=== PATIENT | female | born 1985 | race Caucasian/White ===

== ENCOUNTER 2022-06-22 12:45 | Emergency (ER) | payer OTHER ==
[2022-06-22] MEDS ORDERED: AMOX/K CLAV 875 MG TAB ONE (13:26)
--- NOTE | 2022-06-22 13:46 | ER ---
Nurse's Notes [facility] Name: Kareen Atkinson Age: 37 yrs Sex: Female : 1985 Arrival Date: 06/22/2022 Time: 12:47 Bed 12 Private MD: Diagnosis: Bitten by dog Presentation: 06/22 12:57 Chief complaint: Bit by dog on forearm while working at [employer] 30 mins ago. Coronavirus hb screen: At this time, the client does not indicate any symptoms associated with coronavirus-19. Ebola Screen: No symptoms or risks identified at this time. Initial Sepsis Screen: Does the patient meet any 2 criteria? No. Patient's initial sepsis screen is negative. Does the patient have a suspected source of infection? No. Patient's initial sepsis screen is negative. Risk Assessment: Do you want to hurt yourself or someone else? Patient reports no desire to harm self or others. Onset of symptoms was June 22, 2022. 12:57 Method Of Arrival: Ambulatory hb 12:57 Acuity: PRADIP 4 hb Historical: - Allergies: 12:59 No Known Allergies; hb - Home Meds: 12:59 Lisinopril Oral [Active]; levothyroxine oral [Active]; hb - PMHx: 12:59 Hypertensive disorder; Hypothyroidism; hb - PSHx: 12:59 Cholecystectomy; hb - Immunization history:: Last tetanus immunization: < 5 years ago. - Social history:: Smoking status: . Assessment: 13:17 Reassessment: [employer] [employer] notified of dog bite, dispatcher states "officer is en route" . aa5 13:38 Reassessment: Pt reports signals officer spoke to her. . aa5 13:39 Reassessment: Patient is alert, oriented x 3, equal unlabored respirations, skin aa5 warm/dry/pink. Dog bite to right FA cleaned with Hibiclens and normal saline, dressed with gauze and Kerlix. One puncture wound noted to right FA, measuring approximately 0.5 cm, no active bleeding noted, 3 small scratches noted to right FA with no bleeding noted. . 13:50 Reassessment: Patient is alert, oriented x 3, equal unlabored respirations, skin aa5 warm/dry/pink. Vital Signs: 12:57 BP 142 / 96; Pulse 66; Resp 16; Temp 97.2; Pulse Ox 100% on R/A; Weight 74.84 kg; hb Height 5 ft. 5 in. (165.10 cm); Pain 9/10; 12:57 Body Mass Index 27.46 (74.84 kg, 165.10 cm) hb ED Course: 12:47 Patient arrived in ED. mr 12:49 [facility]cd[facility]C [facility] kb 12:49 Miko Singh MD is Attending Physician. kb 12:59 Triage completed. hb 13:50 No provider procedures requiring assistance completed. Patient did not have IV access aa5 during this emergency room visit. Administered Medications: 13:39 Drug: Augmentin (Amoxicillin-Clavulanate) 875 mg Route: PO; aa5 13:50 Follow up: Response: No adverse reaction aa5 Outcome: 13:46 Discharge ordered by MD. kb 13:50 Discharged to home ambulatory. aa5 13:50 Condition: stable 13:50 Discharge instructions given to patient, Instructed on discharge instructions, follow up and referral plans. medication usage, wound care, Demonstrated understanding of instructions, follow-up care, medications, wound care, Prescriptions given X 1. 13:51 Patient left the ED. iw Signatures: Anahi Mcdowell FNP-C FNP-Swapnil Lj Leny rasmussen Olga Morocho, RN JAVAD iw Christy Wong, RN RN aa5 Ainsley Oliva, JAVAD RN hb Corrections: (The following items were deleted from the chart) 13:00 12:59 PMHx: Hyperthyroidism; hb hb 13:41 13:39 Reassessment: Patient is alert, oriented x 3, equal unlabored respirations, skin aa5 warm/dry/pink. Dog bite to right FA cleaned with Hibiclens and normal saline, dressed with gauze and Kerlix. . aa5
--- NOTE | 2022-06-22 13:46 | EDPHYS ---
Physician Documentation [facility] Name: Kareen Atkinson Age: 37 yrs Sex: Female : 1985 Arrival Date: 06/22/2022 Time: 12:47 Bed 12 Private MD: ED Physician Miko Singh HPI: 06/22 15:57 This 37 yrs old Female presents to ER via Ambulatory with complaints of Dog Bite. kb 15:57 by a dog. Onset: The symptoms/episode began/occurred just prior to arrival. Animal kb information: Patient/Caregiver unable to provide information related to the animal. Secondary to the bite the patient reports an abrasion, pain. Associated signs and symptoms: Pertinent positives: pain at site, swelling at site. Severity of symptoms: At their worst the symptoms were mild, in the emergency department the symptoms are unchanged. The patient has not experienced similar symptoms in the past. The patient has not recently seen a physician. Historical: - Allergies: 12:59 No Known Allergies; hb - Home Meds: 12:59 Lisinopril Oral [Active]; levothyroxine oral [Active]; hb - PMHx: 12:59 Hypertensive disorder; Hypothyroidism; hb - PSHx: 12:59 Cholecystectomy; hb - Immunization history:: Last tetanus immunization: < 5 years ago. - Social history:: Smoking status: . ROS: 15:57 Constitutional: Negative for fever, chills, and weight loss. kb 15:57 Skin: Positive for abrasion(s), laceration(s), of the right forearm. 15:57 All other systems are negative. Exam: 15:57 Constitutional: This is a well developed, well nourished patient who is awake, alert, kb and in no acute distress. Head/Face: Normocephalic, atraumatic. ENT: Moist Mucous membranes Cardiovascular: Regular rate and rhythm with a normal S1 and S2. No gallops, murmurs, or rubs. No pulse deficits. Respiratory: Respirations even and unlabored. No increased work of breathing. Talking in full sentences MS/ Extremity: Pulses equal, no cyanosis. Neurovascular intact. Full, normal range of motion. Neuro: Awake and alert, GCS 15, oriented to person, place, time, and situation. Moves all extremities. Normal gait. 15:57 Skin: injury, bite(s), superficial, of the right forearm. Vital Signs: 12:57 BP 142 / 96; Pulse 66; Resp 16; Temp 97.2; Pulse Ox 100% on R/A; Weight 74.84 kg; hb Height 5 ft. 5 in. (165.10 cm); Pain 9/10; 12:57 Body Mass Index 27.46 (74.84 kg, 165.10 cm) hb MDM: 12:53 Patient medically screened. kb 15:54 Differential diagnosis: superficial laceration, abrasion, puncture. Data reviewed: kb vital signs, nurses notes. Test considered but Not performed: X-ray: x-ray considered, but pt has full ROM and no bony tenderness. Counseling: I had a detailed discussion with the patient and/or guardian regarding: the historical points, exam findings, and any diagnostic results supporting the discharge/admit diagnosis, the need for outpatient follow up, a family practitioner, to return to the emergency department if symptoms worsen or persist or if there are any questions or concerns that arise at home. ED course: Patient is a 37-year-old female who presents for dog bite to right forearm. Reports she works at the [employer] and one of the dogs bit her. On exam patient has 2 small abrasions to right forearm and one 0.5 cm laceration. Patient educated on need for antibiotics to prevent infection and wound care. Laceration is not gaping. Patient educated o return precautions and need to follow-up with PCP. Verbal understanding received.. 06/22 12:56 Order name: Wound Care; Complete Time: 13:39 kb Administered Medications: 13:39 Drug: Augmentin (Amoxicillin-Clavulanate) 875 mg Route: PO; aa5 13:50 Follow up: Response: No adverse reaction aa5 Disposition Summary: 06/22/22 13:46 Discharge Ordered Location: Home kb Condition: Stable kb Diagnosis - Bitten by dog kb Followup: kb - With: Emergency Department - When: As needed - Reason: Worsening of condition Followup: kb - With: Private Physician - When: 2 - 3 days - Reason: Recheck today's complaints, Continuance of care, Re-evaluation by your physician Discharge Instructions: - Discharge Summary Sheet kb - Animal Bite, Adult, [id number] kb Forms: - Medication Reconciliation Form kb - Thank You Letter kb - Antibiotic Education kb - Prescription Opioid Use kb Prescriptions: - Augmentin 875-125 mg Oral Tablet - take 1 tablet by ORAL route every 12 hours for 10 days; 20 tablet; Refills: 0, kb Product Selection Permitted Signatures: Anahi Mcdowell FNP-C FNP-Ckb Calderon, Audri RN RN aa5 Ainsley Oliva RN RN hb Corrections: (The following items were deleted from the chart) 13:00 12:59 PMHx: Hyperthyroidism; hb hb
[2022-06-22 14:33] VITALS: BP 142/96; TEMP 97.2; O2SAT 100
== END 2022-06-22 13:51 | disposition home or self-care (01) ==
LOC: ER 12:45
DX: S51.811A Laceration without foreign body of right forearm, initial encounter (principal); W54.0XXA Bitten by dog, initial encounter; I10 Essential (primary) hypertension; E03.9 Hypothyroidism, unspecified
CPT/HCPCS: 99283